=== PATIENT | male | born 1995 | race Caucasian/White ===

== ENCOUNTER 2022-01-01 07:43 | Emergency (ER) | payer MEDICAID ==
[2022-01-01] MEDS ORDERED: Acetaminophen 500 MG Tab PO ONE (08:05)
[2022-01-01] MEDS ORDERED: Loperamide 2 MG Cap PO ONE (08:05)
== END 2022-01-01 09:40 | disposition home or self-care (01) ==
LOC: FB.ED 07:43
DX: B34.9 Viral infection, unspecified (principal); R21 Rash and other nonspecific skin eruption
CPT/HCPCS: 82947; 87651; 99284; A9270; 99282

== ENCOUNTER 2022-03-24 23:50 | Emergency (ER) | payer MEDICAID | END 2022-03-25 00:30 | disposition home or self-care (01) | LOC: FB.ED 23:50 | DX: S93.402A Sprain of unspecified ligament of left ankle, initial encounter (principal); X50.1XXA Overexertion from prolonged static or awkward postures, initial encounter | CPT/HCPCS: 73610-LT; 99281; 99283 ==